=== PATIENT | female | born 1975 | race Caucasian/White ===

== ENCOUNTER → 2023-11-02 08:45 | Outpatient (REF) | payer OTHER, SELFPAY | LOC: HWRAD 08:45 | PROVIDERS: ATTENDING PHYSICIAN Physician Assistant; FAMILY PHYSICIAN Nurse Practitioner Adult Health | DX: E04.2 Nontoxic multinodular goiter (principal) | CPT/HCPCS: 76536 ==

== ENCOUNTER → 2024-02-29 15:04 | Outpatient (REF) | payer OTHER, SELFPAY | LOC: HWWDC 15:04 | PROVIDERS: ATTENDING PHYSICIAN Nurse Practitioner Adult Health | DX: Z12.31 Encounter for screening mammogram for malignant neoplasm of breast (principal) | CPT/HCPCS: 77063; 77067 ==

== ENCOUNTER 2024-08-15 22:09 | Emergency (ER) | payer OTHER, SELFPAY ==
[2024-08-15 22:41] LABS: % Basophils 0.5 % (0-2); % Eosinophils 1.6 % (0-6); % Lymphocytes 36.2 % (20.5-51.1); % Monocytes 6.5 % (1.7-9.3); % Neutrophils 55.2 % (42.2-75.2); Absolute Eosinophils 0.1 10^3/uL (0-0.7); Absolute Lymphocytes 2.8 10^3/uL (1.2-3.4); Absolute Monocytes 0.5 10^3/uL (0.1-0.6); Absolute Neutrophils 4.2 10^3/uL (1.4-6.5); Hemoglobin 13.1 g/dL (12.0-16.0); Mean Corp Hgb Conc. 35.4 g/dL (33.0-37.0); Mean Corpuscular Hgb 29.4 pg (27.0-31.0); Mean Corpuscular Volume 83.1 fL (81.0-99.0); Nucleated Red Blood Cells % 0 %; Platelet Count 228 10^3/uL (130-400); Red Blood Cell Count 4.45 10^6/uL (4.20-5.40); Red Cell Dist. Width 11.6 % (11.5-14.5); White Blood Cell Count 7.7 10^3/uL (4.8-10.8)
[2024-08-15 22:58] LABS: HCG, Serum Qualitative Screen Negative
[2024-08-15 23:01] LABS: Troponin I < 0.012 ng/ml
[2024-08-15 23:04] LABS: ALT (SGPT) 16 U/L (0-35); AST (SGOT) 24 U/L (14-36); Alkaline Phosphatase 62 U/L (38-126); Blood Urea Nitrogen 8 mg/dl (7-17); Calcium 8.9 mg/dl (8.4-10.2); Carbon Dioxide 26 mmol/L (22-30); Chloride 101 mmol/L (98-107); Glucose 105 mg/dl (70-99); Potassium 4.4 mmol/L (3.5-5.1); Sodium 136 mmol/L (135-145); Total Bilirubin 0.9 mg/dl (0.2-1.3); Total Protein 7.8 g/dl (6.3-8.2); eGFR > 60.00
[2024-08-15 23:10] VITALS: BP 132/80
[2024-08-15 23:33] LABS: TSH Reflex To Free T4 6.99 uIU/ml (0.47-4.68)
[2024-08-16 00:04] LABS: Free T4 1.02 ng/dl (0.78-2.19)
[2024-08-16 02:18] VITALS: BP 128/80
== END 2024-08-16 02:18 ==
LOC: EMR 22:09
PROVIDERS: Emergency Medicine
DX: R10.9 Unspecified abdominal pain (principal); M25.519 Pain in unspecified shoulder
CPT/HCPCS: 80053; 84439; 84443; 84484; 84703; 85025; 93005

== ENCOUNTER → 2024-10-07 10:36 | Outpatient (REF) | payer OTHER, SELFPAY ==
[2024-10-07 10:41] LABS: % Basophils 0.3 % (0-2); % Eosinophils 0.9 % (0-6); % Immature Granulocytes 0.2 % (0-0.5); % Lymphocytes 25.4 % (20.5-51.1); % Neutrophils 68.2 % (42.2-75.2); Absolute Eosinophils 0.1 10^3/uL (0-0.7); Absolute Lymphocytes 1.6 10^3/uL (1.2-3.4); Absolute Monocytes 0.3 10^3/uL (0.1-0.6); Absolute Neutrophils 4.3 10^3/uL (1.4-6.5); Hematocrit 38.8 % (37.0-47.0); Hemoglobin 13.5 g/dL (12.0-16.0); Mean Corp Hgb Conc. 34.8 g/dL (33.0-37.0); Mean Corpuscular Volume 83.4 fL (81.0-99.0); Platelet Count 203 10^3/uL (130-400); Red Blood Cell Count 4.65 10^6/uL (4.20-5.40); Red Cell Dist. Width 11.8 % (11.5-14.5); White Blood Cell Count 6.3 10^3/uL (4.8-10.8)
== END ==
LOC: OIDL 10:36
PROVIDERS: ATTENDING PHYSICIAN Nurse Practitioner Adult Health
DX: D50.0 Iron deficiency anemia secondary to blood loss (chronic) (principal); D51.9 Vitamin B12 deficiency anemia, unspecified
CPT/HCPCS: 85025

== ENCOUNTER → 2024-11-22 09:50 | Outpatient (REF) | payer OTHER, SELFPAY | LOC: HWRAD 09:50 | PROVIDERS: ATTENDING PHYSICIAN Physician Assistant; FAMILY PHYSICIAN Nurse Practitioner Adult Health | DX: E04.2 Nontoxic multinodular goiter (principal) | CPT/HCPCS: 76536 ==